=== PATIENT | male | born 1990 | race Caucasian/White ===

== ENCOUNTER 2025-06-15 11:47 | Emergency (ER) | payer OTHER, SELFPAY ==
[2025-06-15 11:48] VITALS: BP 171/121; PULSE 122; RESP 18; TEMP 36.8; O2SAT 100; BMI 31.8
--- NOTE | 2025-06-15 12:08 | EDS_ITS ---
HPI History of Present Illness Chief Complaint: General Illness Detail of Chief Complaint: Requesting medication refill Informant: patient and spouse/S.O. Narrative Narrative: Patient presents to the emergency department requesting medication refills. He has been without his medications for about 3 weeks. He moved to [place] from [place] with his significant other because his father lives in the area and he took up a job. Patient has history of a high heart rate and takes propranolol for that. Patient also has history of anxiety and depression for which she takes Wellbutrin and BuSpar and Seroquel. Currently denies feeling suicidal or homicidal. Denies recent illness. PFSH [facility] Home Medications ?Medication ?Instructions ?Recorded ?Last Taken ?Type bupropion HCl 150 mg 24 hr tablet, 150 mg PO DAILY #30 tabs 06/15/25 Unknown Rx extended release (Wellbutrin XL) buspirone 5 mg tablet 5 mg PO BID #60 tabs 5 Unknown Rx propranolol 20 mg tablet 20 mg PO BID #60 tabs Unknown Rx quetiapine 50 mg tablet (Seroquel) 50 mg PO DAILY #30 tabs 06/15/25 Unknown Rx Allergy/AdvReac Type Severity Reaction Status Date / Time No Known Allergies Allergy Verified 06/15/25 11:50 ROS ROS ED Review of Systems ROS Unobtainable: other Constitutional Constitutional ED: Reports lethargy; Denies chills, fever(s), sweats or weight loss Eyes Eyes: Denies blurry vision, change in vision or diplopia ENT ENT ED: Denies rhinorrhea or sore throat Cardiovascular Cardiovascular: Reports racing heartbeat; Denies chest pain or orthopnea Respiratory/Chest Respiratory/Chest: Denies cough, dyspnea, dyspnea on exertion, orthopnea or sputum Gastrointestinal Gastrointestinal: Denies abdominal pain, diarrhea, nausea or vomiting Genitourinary Genitourinary ED: Denies dysuria, hematuria or urinary frequency Musculoskeletal Musculoskeletal: Denies arthralgias, back pain, myalgias or neck pain Integumentary Denies abscess, Abrasions or rash Neurologic Neurologic: Denies headache(s) or weakness Psychiatric Psychiatric: Denies anxiety, depression or suicidal thoughts Endocrine Endocrinology: Denies polydipsia, polyphagia or polyuria Hematologic/Lymphatic Hematologic/Lymphatic: Denies easy bleeding, easy bruising or lymphadenopathy Allergic/Immunologic Allergic/Immunologic ED: Denies mouth swelling, tongue swelling or urticaria EXAM Physical Exam Const Vital Signs: 06/15/25 11:48 Temperature 98.2 F Temperature Source Oral Pulse Rate 122 H Respiratory Rate 18 Blood Pressure 171/121 H Blood Pressure Mean 137 Pulse Ox 100 Oxygen Delivery Method Room Air Positive well nourished and well developed General Appearance ED: well developed and NAD HEENT Reports TM's clear and moist mucous membranes normocephalic and atraumatic; Negative for trauma or tenderness Tympanic Membrane ED: Yes TM's clear Eyes PERRL and EOMs intact bilaterally General Eye ED: Negative for pale conjunctiva or scleral icterus Neck no lymphadenopathy, supple and no JVD General: Negative for tenderness Chest Wall inspection of chest normal and palpation of chest normal Chest: Negative for tenderness Resp normal respiratory effort and clear to auscultation bilaterally Effort and Inspection: Negative for respiratory distress or pain with movement Auscultation: Negative for rhonchi, wheezes or diminished lung sounds Cardio regular rhythm, S1 normal heart sound, S2 normal heart sound and no murmurs; Negative for regular rate Rate: tachycardic Peripheral Pulses: pulses 2+ throughout GI normal to inspection, nondistended, normoactive bowel sounds, soft to palpation, non-tender, non-distended and no masses Back/Spine no CVA tenderness and no thoracic nor lumbar tenderness Extremity normal to inspection General Extremety ED: Negative for edema General Extremity: Negative for edema Neuro oriented x3, CN's II-XII intact bilaterally, no sensory deficits noted and gait normal Sensorium / Orientation: awake, alert, oriented to person, oriented to place and oriented to time Motor Exam: strength 5/5 throughout and strength abnormal Psych mental status grossly normal Skin no rashes or lesions noted and no wounds MDM MDM MDM Narrative Medical decision making narrative: Patient presents with request for medication refills. Has history of tachycar manuel as well as anxiety and depression. He has no significant complaints otherwise. I will write him a prescription for his medications. Will refer to primary care physician on-call for no doc. Offered to have patient speak with a social sciences chair or crisis however he does not feel that that is necessary as he does have a significant other with him and has no plan on harming himself. Patient knew the dosing on his medications. He did propranolol 40 mg twice daily. He takes Wellbutrin 50 mg daily. He takes BuSpar 5 mg twice daily. He takes Seroquel 50 mg at night. Discharge Plan Triage Chief Complaint: General Illness ED Provider: Markus Mendez Dx/Rx/DC Orders Clinical Impression: Medication refill, Tachycardia Instructions: Medication Refill Prescriptions: New propranolol 20 mg tablet 20 mg PO BID Qty: 60 0RF bupropion HCl [Wellbutrin XL] 150 mg tablet extended release 24 hr 150 mg PO DAILY Qty: 30 0RF quetiapine [Seroquel] 50 mg tablet 50 mg PO DAILY Qty: 30 0RF buspirone 5 mg tablet 5 mg PO BID Qty: 60 0RF Primary Care Provider: Care Physician,No Primary Referrals: NOT,DEFINED [Non-Staff, None] Print Language: Malaysian Disposition Disposition: Home, Self Care
[2025-06-15 12:10] VITALS: BP 171/121; PULSE 122; RESP 18; TEMP 36.8; O2SAT 100
--- NOTE | 2025-06-15 12:38 | CM.ED ---
Social Work Reason for visit: No PCP Patient has recently moved to the area and confirms that he does not currently have a PCP. [facility] provider list and Beryl Glover information given to patient. No further needs identified at this time. Karlene Goodson, DAIRY HELPER, DRUM FILLER
== END 2025-06-15 12:23 | disposition home or self-care (01) ==
LOC: ED 12:15
PROVIDERS: Emergency Provider Emergency Medicine; Visit Provider Emergency Medicine
DX: Z76.0 Encounter for issue of repeat prescription (principal); R00.0 Tachycardia, unspecified; R03.0 Elevated blood-pressure reading, without diagnosis of hypertension; F41.9 Anxiety disorder, unspecified; F32.A Depression, unspecified; Z79.899 Other long term (current) drug therapy
CPT/HCPCS: 99282

== ENCOUNTER 2025-07-08 16:03 | Emergency (ER) | payer OTHER, SELFPAY ==
[2025-07-08] VITALS (9 sets, daily range): BP systolic 133–161; BP diastolic 64–105; PULSE 98–113; RESP 13–21; TEMP 36.6; O2SAT 94–98; BMI 31.8
[2025-07-08 16:32] LABS: Hematocrit 53.0 % (40-54); Immature Granulocytes Count 0.040 X10^3/uL (0.0-0.0); Mean Corp Hgb Conc 34.5 g/dL (32-36); Mean Corpuscular Volume 101.0 fL (80-94); Mean Platelet Vol. 8.8 fl (6.2-12.0); NRBC Flagged by Analyzer 0 % (0-5); POSITIVE DIFFERENTIAL YES; Platelet Count 175 K/mm3 (150-450); RBC Distribution Width CV 14.6 % (11.6-14.6); RBC Distribution Width SD 54.8 fl (35.1-43.9); Red Blood Count 5.25 M/mm3 (4.6-6.2); White Blood Count 5.5 K/mm3 (4.4-11.0)
[2025-07-08 16:41] LABS: Hemoglobin 18.3 g/dL (13.0-16.5)
[2025-07-08 16:51] LABS: AST(SGOT) 99 U/L (<=37); Alanine Aminotransfer ALT/SGPT 87 U/L (<=46); Albumin, Serum 4.0 g/dL (3.5-5.0); Alkaline Phosphatase 105 U/L (40-129); Anion Gap 21 (7-18); BUN 6 mg/dL (4-19); BUN/Creat Ratio 4.9 RATIO (10-20); Calcium,Total 9.2 mg/dL (7.6-11.0); Carbon Dioxide 19.6 mmol/L (20.0-29.0); Chloride 97 mmol/L (96-106); Estimated Creatinine Clearance 93.00 ml/min (50-250); Globulin 4.3 g/dL (2.2-4.2); Glucose 176 mg/dL (70-99); Potassium 4.1 mmol/L (3.5-5.1)
[2025-07-08 16:52] LABS: Alcohol, Blood (Medical)-Serum < 10.1 mg/dL (<=10.0)
[2025-07-08 16:55] LABS: Barbiturate Urine NEGATIVE (< 200 ng/mL); Benzodiazepine Urine NEGATIVE (< 200 ng/mL); PCP Urine NEGATIVE (< 25 ng/mL); THC Urine NEGATIVE (< 50 ng/mL)
[2025-07-08] MEDS: levETIRAcetam IV 1,500 MG in 0.9% Normal Saline (100mL Bag) 100 ML 460 MG IV (17:23)
--- NOTE | 2025-07-08 18:56 | EX.ED.DYSGE1 ---
HPI History of Present Illness Chief Complaint: General Illness Detail of Chief Complaint: Reported generalized tonic-clonic seizure Informant: spouse/S.O. Onset/Context/Timing Onset: Today Context: Sudden Onset Timing: Intermittent Quality: Generalized tonic-clonic seizure Location: Duration 1 to 2 minutes Current Severity: Mild Maximum Severity: Severe Worsened by: Noncompliance with medication Relieved by: Terminated on its own Associated Symptoms Associated Symptoms: Slight headache and postictal Narrative Narrative: Patient is a 34-year-old male. He has a known history of seizure disorder. He was prescribed Keppra. He is not compliant with his Keppra. He does have history of alcohol and drug use. He denies using anything recently other than marijuana once in the last 1 to 2 months. He does have a headache. Eyes double vision, blurred vision loss of vision. He denies ringing in his ears decreased hearing. No trouble with speech or swallowing. He did not bite his tongue. He denies cardiac respiratory symptoms. He denies GI symptoms. He had no incontinence of urine or stool. He complains of twitchiness after seizure. He also states sometimes he has twitching before he has the seizure. He denies paresthesia, anesthesia or motor weakness. He has no other complaints. Prior similar symptoms: Yes Recent Illness/Hospitalization: No [facility] Medical History (Updated 07/08/25 @ 19:[address] Salvador Serrano MD) Generalized seizure disorder Home Medications ?Medication ?Instructions ?Recorded ?Last Taken ?Type bupropion HCl 150 mg 24 hr tablet, 150 mg PO DAILY #30 tabs 06/15/25 Unknown Rx extended release (Wellbutrin XL) buspirone 5 mg tablet 5 mg PO BID #60 tabs 06/15/25 Unknown Rx propranolol 20 mg tablet 20 mg PO BID #60 tabs 06/15/25 Unknown Rx quetiapine 50 mg tablet (Seroquel) 50 mg PO DAILY #30 tabs 06/15/25 Unknown Rx guanfacine 2 mg tablet 2 mg PO DAILY 07/08/25 Unknown History levetiracetam 500 mg tablet 500 mg PO BID #60 tabs 07/08/25 Unknown Rx (Keppra) Allergy/AdvReac Type Severity Reaction Status Date / Time No Known Allergies Allergy Verified 07/08/25 16:09 Social History (Updated 12/26/25 @ 18:[address] Salvador Serrano MD) household members: significant other Smoking Status: Never smoker ROS ROS ED Constitutional Constitutional ED: Denies chills, fever(s), subjective, sweats or weight loss Eyes Eyes: Denies blurry vision or change in vision ENT ENT ED: Denies ear pain, rhinorrhea or sore throat Cardiovascular Cardiovascular: Denies chest pain, palpitations or racing heartbeat Respiratory/Chest Respiratory/Chest: Denies cough, dyspnea or dyspnea on exertion Gastrointestinal Gastrointestinal: Denies abdominal pain, nausea or vomiting Genitourinary Genitourinary ED: Denies dysuria, hematuria or urinary frequency Musculoskeletal Musculoskeletal: Reports myalgias; Denies arthralgias, back pain or neck pain Integumentary Denies rash Neurologic Neurologic: Denies headache(s) or paresthesias Hematologic/Lymphatic Hematologic/Lymphatic: Reports systems reviewed and no addt'l complaints, except as documented EXAM Physical Exam Const Vital Signs: 07/08/25 16:05 07/08/25 16:10 07/08/25 16:30 Temperature 97.8 F Temperature Source Oral Pulse Rate 109 H 109 H Respiratory Rate 18 17 Respiratory Pattern Normal Blood Pressure 161/103 H 133/83 H Blood Pressure Mean 122 98 Pulse Ox 95 95 Oxygen Delivery Method Room Air 07/08/25 17:00 07/08/25 17:15 07/08/25 17:30 Temperature Temperature Source Pulse Rate 98 109 H 101 H Respiratory Rate 14 14 13 Respiratory Pattern Blood Pressure 149/105 H 141/97 H Blood Pressure Mean 119 111 Pulse Ox 95 94 97 Oxygen Delivery Method 07/08/25 17:45 07/08/25 18:00 Temperature Temperature Source Pulse Rate 113 H 112 H Respiratory Rate 21 H 14 Respiratory Pattern Blood Pressure 143/93 H Blood Pressure Mean 108 Pulse Ox 98 97 Oxygen Delivery Method Positive well nourished and well developed Constitutional Narrative: Patient is confused and disoriented to time. General Appearance ED: well developed and NAD; Negative for cyanotic, diaphoretic or pallor HEENT Reports moist mucous membranes HEENT Narrative: Head is atraumatic and normocephalic. Ears are normal. Nares are patent Eyes PERRL and EOMs intact bilaterally General Eye ED: Negative for pale conjunctiva or scleral icterus Neck no lymphadenopathy, supple and no JVD Resp normal respiratory effort and clear to auscultation bilaterally Cardio regular rate, regular rhythm, S1 normal heart sound, S2 normal heart sound and no murmurs GI normal to inspection, nondistended, normoactive bowel sounds, non-tender, non-distended and no masses; Negative for hepatosplenomegaly Back/Spine no CVA tenderness Extremity normal to inspection Neuro oriented x3 and CN's II-XII intact bilaterally Sensorium / Orientation: alert Psych mental status grossly normal Skin no rashes or lesions noted, no wounds and skin turgor normal General Skin Exam: elasticity normal; Negative for jaundice or pallor MDM MDM MDM Narrative Medical decision making narrative: Patient with generalized tonic-clonic seizure. After talking with family it was determined that patient does have a seizure disorder. It was determined that he was prescribed Keppra 500 g twice daily. He has not taken his Keppra in weeks. He was loaded with 1500 mg of Keppra. Blood work was obtained because the paramedics informed us there was no known history of seizures and he may have had a seizure. Also there was history of drug use and reason for tox screen and alcohol level. History & Record Review Additional record(s) reviewed:: No prior records Lab Data Attestation: I reviewed the patient's lab results. Lab results narrative: CBC reveals an elevated H&H 18.3 and 53.0 with an MCV of 101 consistent with his prior use of alcohol. Basic metabolic panel reveals a CO2 of 19 and anion gap of 21. Lactate is 8.2. Liver enzymes are slightly elevated. Talk screen is negative. Alcohol was not detected. Labs: Laboratory Results - last 24 hr 07/08/25 07/08/25 16:15 16:29 WBC 5.5 RBC 5.25 Hgb 18.3 H* Hct 53.0 MCV 101.0 H MCH 34.9 H MCHC 34.5 RDW Std Deviation 54.8 H RDW Coeff of Onofre 14.6 Plt Count 175 MPV 8.8 Immature Gran % (Auto) 0.700 Neut % (Auto) 78.4 H Lymph % (Auto) 9.7 L Alfalfa % (Auto) 10.8 H Eos % (Auto) 0.0 Baso % (Auto) 0.4 Absolute Neuts (auto) 4.3 Absolute Lymphs (auto) 0.54 L Nucleated RBC % 0 Sodium 137 Potassium 4.1 Chloride 97 Carbon Dioxide 19.6 L Anion Gap 21 H BUN 6 Creatinine 1.19 Estim Creat Clear Calc 93.00 Est GFR (MDRD) Non-Af 81 BUN/Creatinine Ratio 4.9 L Glucose 176 H Lactic Acid 8.2 H* Calcium 9.2 Total Bilirubin 1.23 AST 99 H ALT 87 H Alkaline Phosphatase 105 Total Protein 8.2 Albumin 4.0 Globulin 4.3 H Albumin/Globulin Ratio 0.9 Urine Opiates Screen NEGATIVE U Buprenorphine Qual NEGATIVE Ur Oxycodone Screen NEGATIVE Urine Methadone Screen NEGATIVE Urine Fentanyl Screen NEGATIVE Ur Barbiturates Screen NEGATIVE Ur Phencyclidine Scrn NEGATIVE Ur Amphetamines Screen NEGATIVE U Benzodiazepines Scrn NEGATIVE Urine Cocaine Screen NEGATIVE U Cannabinoids Screen NEGATIVE Ethyl Alcohol < 10.1 Treatment and Re-Evaluation :: Since patient has known seizure disorder and he sees because of noncompliance there is no indication for CT especially since he has a nonfocal neurologic exam. Discharge Plan Triage Chief Complaint: General Illness ED Provider: Salvador Serrano Dx/Rx/DC Orders Clinical Impression: Generalized tonic-clonic seizure, Generalized seizure disorder, Drug noncompliance Instructions: ED Seizure, Recurrent (Adult) Prescriptions: New levetiracetam [Keppra] 500 mg tablet 500 mg PO BID Qty: 60 2RF No Action propranolol 20 mg tablet 20 mg PO BID Qty: 60 0RF bupropion HCl [Wellbutrin XL] 150 mg tablet extended release 24 hr 150 mg PO DAILY Qty: 30 0RF quetiapine [Seroquel] 50 mg tablet 50 mg PO DAILY Qty: 30 0RF buspirone 5 mg tablet 5 mg PO BID Qty: 60 0RF guanfacine 2 mg tablet 2 mg PO DAILY Primary Care Provider: Care Physician,No Primary Referrals: Sam Shell MD [Med Staff - Breaking Machine Operator, Family Practice] - 1-2 Weeks Bassem Aguirre MD [Non-Staff -Ordering Privileges, Neurology] - 1-2 Weeks Care Physician,No Primary [Primary Care Provider, Medical] Activity Restrictions/Additional Instructions: 1. No driving until you are cleared by Dr. Cody or Dr. Aguirre. 2. Take the Keppra you were prescribed. 3. No taking baths, swimming and pool pond or chan, use of power equipment or working from any height until cleared by your doctor Print Language: Canadian Disposition Disposition: Home, Self Care
[2025-07-08 20:19] LABS: Reflex Lactate? Y
[2025-07-10 08:07] LABS: PROLACTIN 42.9 ng/mL (3.9-22.7)
== END 2025-07-08 19:15 | disposition home or self-care (01) ==
PROVIDERS: Emergency Provider Emergency Medicine; Visit Provider Emergency Medicine
DX: G40.409 Other generalized epilepsy and epileptic syndromes, not intractable, without status epilepticus (principal); Z91.148 Patient's other noncompliance with medication regimen for other reason; Z79.899 Other long term (current) drug therapy
CPT/HCPCS: 80053; 80307; 82077; 83605; 84146; 85025; 96365; 99285; A4216